=== PATIENT | female | born 1950 | race Caucasian/White ===

== ENCOUNTER 2018-06-22 11:53 | Outpatient (CLI) | payer MEDICARE ==
--- NOTE | 2018-06-22 13:48 | RAD ---
TWO VIEW CHEST: Indications: Pneumonia. Comparison: 09-06-17 FINDINGS: Heart size is mildly prominent. The vasculature is upper normal but stable. No focal infiltrate. No e ffusion. IMPRESSION: Borderline cardiomegaly and mild vascular engorgement. No acute process or interval change apparent. POS: [facility]
== END 2018-06-22 11:54 | disposition home or self-care (01) ==
LOC: MADRAD 11:53
PROVIDERS: ATTEND Obstetrics & Gynecology
DX: J18.1 Lobar pneumonia, unspecified organism (principal); I51.7 Cardiomegaly; J81.1 Chronic pulmonary edema
CPT/HCPCS: 71046

== ENCOUNTER 2019-08-29 14:37 | Inpatient (IN) | payer MEDICARE ==
[2019-08-29] MEDS ORDERED: Dextrose 50% Abboject 50 ML SYRINGE IVP PRN (21:08)
[2019-08-29] MEDS ORDERED: Dextrose 5% in Water 1,000 ML IV PRN (21:08)
[2019-08-29] MEDS ORDERED: Ondansetron ODT 4 MG TAB SL PRN (21:11)
[2019-08-29] MEDS ORDERED: Nitroglycerin 0.4 MG TAB (25 Tab Bottle) SL PRN (21:11)
[2019-08-29] MEDS ORDERED: SYSTANE 3.5 GM TUBE EA EYE PRN (21:11)
[2019-08-29] MEDS ORDERED: Calcium Carbonate 500 MG ChewTAB PO PRN (21:12)
[2019-08-29] MEDS: Apixaban 5 MG TAB PO SCH (21:40)
[2019-08-29] MEDS: Cefdinir 300 MG CAP PO SCH (21:40)
[2019-08-29] MEDS: Carvedilol 3.125 MG TAB PO SCH (21:40)
[2019-08-29] MEDS: Furosemide 40 MG TAB PO SCH (21:41)
[2019-08-29] MEDS: Lantus 1000 UNITS/10 ML VIAL SC SCH (21:41)
[2019-08-29] MEDS: Nystatin Ointment 15 GM TUBE TOP SCH (21:41)
[2019-08-30] MEDS: HYDROcodone/Acetaminophen 7.5/325 mg Tablet PO PRN ×3 (03:16→16:37)
[2019-08-30] MEDS: Levothyroxine Sodium 125 MCG TAB PO SCH (05:16)
[2019-08-30] MEDS: Aspirin Chewable 81 MG TAB PO SCH (08:30)
[2019-08-30] MEDS: Carvedilol 3.125 MG TAB PO SCH ×2 (08:31→20:32)
[2019-08-30] MEDS: Metolazone 5 MG TAB PO SCH (08:31)
[2019-08-30] MEDS: Furosemide 40 MG TAB PO SCH ×2 (08:31→20:33)
[2019-08-30] MEDS: Cefdinir 300 MG CAP PO SCH ×2 (08:32→20:32)
[2019-08-30] MEDS: Apixaban 5 MG TAB PO SCH ×2 (08:32→20:32)
[2019-08-30] MEDS: Citalopram 20 MG TAB PO SCH (08:32)
[2019-08-30] MEDS: Nystatin Ointment 15 GM TUBE TOP SCH (08:33)
[2019-08-30] MEDS ORDERED: FLU VACC TS2019-20(65YR UP)/PF 180 MCG/0.5 ML SYRINGE IM ONE (09:00)
[2019-08-30] MEDS ORDERED: Prevnar 13-Val Conj/PF 0.5 ML SYRINGE IM ONE (09:00)
[2019-08-30] MEDS: Insulin Regular 300 UNITS/3 ML VIAL SC PRN ×2 (12:05→16:40)
[2019-08-30 15:51] LABS: Bilirubin Negative (Negative); Blood, Urine Moderate (Negative); Clarity Clear (Clear); Glucose, Urine (Dipstick) Negative (Negative); Leukocyte Large (Negative); Nitrite Negative (Negative); Protein, Urine (Dipstick) Negative (Neg-Trace); Urobilinogen 0.2 mg/dL (Less than 2)
[2019-08-30 16:02] LABS: Bacteria/HPF 1+ HPF (None Seen); RBC/HPF 0-3 HPF (0-3)
[2019-08-30 16:03] LABS: Mucous/LPF Rare LPF (<2+)
--- NOTE | 2019-08-30 20:05 | HP ---
PRIMARY CARE PHYSICIAN: Dr. Rachel Mckinney. REASON FOR CONSULTATION: For skilled rehabilitation, status post acute on chronic diastolic heart failure, acute respiratory failure with hypoxia and hypercapnia. BRIEF HISTORY AND PHYSICAL: The patient is a 69-year-old female with a medical history of chronic diastolic heart failure, obstructing sleep apnea on CPAP, morbid obesity, type 2 diabetes, coronary artery disease, chronic low back pain, history of hypothyroidism, supraventricular tachycardia. The patient presented to [facility] in [place] on the 19 of August due to shortness of breath. The patient states she had worsening gradual shortness of breath for the past 3 months, became progressively worse in the last 3 to 4 days prior to the hospitalization. She states she was unable to lie flat. She was compliant with the CPAP at night, but she complained of some dry cough, nausea, and intermittent vomiting. En route to the hospital via EMS, the patient had bradycardic episodes with the heart rate in the 40s. She was given atropine, and when she was seen in the emergency room, she was noted to have acute hypoxic respiratory failure secondary to congestive heart failure. The patient was put on continuous noninvasive positive pressure ventilation, and she was admitted to the ICU. During hospitalization, she was seen by Dr. Mclaughlin, book critic and Dr. Haji, nutritional health coach. She was placed on dopamine drip for bradycardia, and she was gently diuresed. The patient was noted to have severe anasarca. Echocardiogram was done, which showed a normal ejection fraction with diastolic dysfunction. The patient had distended abdomen, severe abdominal wall edema and anasarca. She had abdominal ultrasound done, which showed mild ascites. The patient does have chronic kidney disease, so she was gently diuresed with IV Lasix. She slowly improved, but continued to have a lot of anasarca. The patient was noted to be severely deconditioned, and she was barely able to stand up and make 1 to 2 steps with maximum assist. The decision was made to admit and transfer the patient to a swing bed for skilled rehabilitation and to continue gently diureses and closely monitor renal function as she progresses. Due to diureses and severe morbid obesity and deconditioning, the patient had a Amezcua placed. Due to the acute respiratory failure and hypoxia. She was started on Omnicef for a total of 10 days. The patient was transferred here for skilled rehabilitation, and upon evaluation of the patient today, she continues to complain of lower back pain and abdominal pain. In [place], the patient was being given IV morphine. Medicine has been switched to [place] upon arrival here today, which the patient states it is helping a little. She is still very deconditioned. She is very fatigued. She denies any chest pain. She denies any palpitations or shortness of breath. The patient continues to use O2 nasal cannula at 2 L and a CPAP at night. PAST MEDICAL HISTORY: 1. Chronic diastolic heart failure. 2. Obstructive sleep apnea, on CPAP. 3. Diabetes, type 2. 4. CAD. 5. Dyslipidemia, hypertension, chronic lower back pain, GERD, morbid obesity, coronary artery disease, hypothyroidism. PAST SURGICAL HISTORY: Appendectomy in 2002, cholecystectomy, cardiac catheterization in 2013 that showed minimal single-vessel disease, tonsillectomy , tubal ligation, adenoidectomy. CODE STATUS: The patient is a full code. ALLERGIES: IODINE, SULFA, AND CHLORPROMAZINE. FAMILY HISTORY: Positive for heart disease in several family members. SOCIAL HISTORY: The patient is a former smoker. She denies alcohol or illicit drug use. She is . MEDICATIONS: 1. Eliquis 5 mg b.i.d. 2. Aspirin 81 mg daily. 3. Coreg 3.125 b.i.d. 4. Cefdinir 300 b.i.d. x4 more days. 5. Celexa 20 daily. 6. Cardizem 120 b.i.d. 7. Lasix 40 b.i.d. 8. Lantus 10 units at bedtime. 9. Levothyroxine 125 mcg daily. 10. Metolazone 5 mg daily. 11. Protonix 40 daily. REVIEW OF SYSTEMS: GENERAL: The patient complains of fatigue and lethargy. CARDIOVASCULAR: Denies chest pain. Complains of orthopnea. RESPIRATORY: Complains of shortness of breath. Occasional cough. ABDOMEN: The patient complains of abdominal pain. Denies any diarrhea or constipation. GENITOURINARY: The patient denies dysuria or hematuria. NEUROLOGICAL: THE patient denies any confusion. SKIN: The patient complains of some rashes and sores that she has had chronically. PHYSICAL EXAMINATION: VITAL SIGNS: Temperature 98.3, pulse 78, respirations 20, O2 97% on 2.5 nasal cannula. Blood pressure 121/75. GENERAL: The patient is alert, awake, and oriented x3. She is chronically ill-appearing and in moderate respiratory distress, but able to complete short phrases. HEENT: Normocephalic, atraumatic. Sclerae anicteric. Oral, moist mucous membranes. NECK: Supple. No JVD. LUNGS: Distant breath sounds. No wheezing. GASTROINTESTINAL: Distended, nontender. Positive bowel sounds. Abdominal wall edematous +2. EXTREMITIES: No cyanosis, +2 nonpitting bilateral edema. PSYCHIATRY: Normal affect. Alert, awake, and oriented x3. NEUROLOGICAL: Cranial nerves grossly intact. No focal deficits. ASSESSMENT: 1. Physical deconditioning. 2. Acute respiratory failure with hypoxia. 3. Acute kidney injury. 4. Acute on chronic diastolic heart failure. 5. Diabetes, type 2. 6. Morbid obesity. 7. Gait instability. 8. Hypothyroidism. 9. Obstructive sleep apnea, on CPAP. 10. Obesity-hypoventilation syndrome. PLAN: The patient is a 69-year-old female who has been admitted to [facility] for physical deconditioning and gait instability secondary to recent hospitalization with acute on chronic heart failure and respiratory failure. We will consult Physical Therapy and Occupational Therapy to help with gait and balance strengthening, ambulation and activities of daily living prior to discharge back to home. We will continue Lasix and gently diurese the patient. We will monitor renal function twice a week. We will encourage the patient to use the CPAP nightly. We will gently try to wean the patient off nasal cannula. We will complete oral Omnicef x4 days. We will resume home medications. We will place the patient on a strict I 's and O's and daily weight, 1000 fluid restriction, and a 2 g low-sodium diet. We will place the patient on Accu-Cheks a.c. and at bedtime. We will place patient on GI prophylaxis with Protonix. She is on Eliquis, which is sufficient for DVT prophylaxis. ESTIMATED LENGTH OF STAY: 3 to 4 weeks. DISPOSITION: Discharge back to home. Job ID: [id number] MTDD
[2019-08-30] MEDS: Nystatin Powder 15 GM BOT TOP SCH (20:35)
[2019-08-30] MEDS: Emollient 15 oz bottle 450 ML, Triamcinolone Acetonide 200 MG TOP SCH (20:36)
[2019-08-30] MEDS: Lantus 1000 UNITS/10 ML VIAL SC SCH (20:58)
[2019-08-31] MEDS: Ondansetron ODT 4 MG TAB PO PRN ×2 (00:53→12:24)
[2019-08-31 05:46] LABS: Anion Gap 16 mmol/L (10-20); BUN (Urea Nitrogen) 46 mg/dL (9.8-20.1); Calc. Creatinine Clearance 132 mL/min (70-130); Calcium 9.1 mg/dL (7.8-10.44); Carbon Dioxide 27 mmol/L (23-31); Chloride 99 mmol/L (98-107); Estimated GFR-MDRD 47; Glucose 149 mg/dL (80-115); Potassium 3.4 mmol/L (3.5-5.1); Sodium 139 mmol/L (136-145)
[2019-08-31 05:49] LABS: #Basophils 0.1 thou/uL (0.0-0.2); #Eosinphils 0.3 thou/uL (0.0-0.7); #Lymphocytes 1.8 thou/uL (1.20-3.40); #Neutrophils 6.4 thou/uL (1.40-6.50); %Basophils 1.3 % (0.0-1.0); %Eosinophils 2.8 % (0.0-10.0); %Monocytes 10.2 % (0.0-10.0); %Neutrophils 66.8 % (42.0-75.0); Hemoglobin 12.1 g/dL (12.0-16.0); Hypochromia SLIGHT = 6-15 cells (100X) (0-5/hpf); MDiff Complete? YES; Mean Corpuscular HGB CONC 29.9 g/dL (32.0-36.0); Mean Corpuscular Hemoglobin 27.8 pg (27.0-31.0); Mean Platelet Volume 7.2 fL (7.4-10.4); Platelet Count 214 thou/uL (130-400); RBC Distribution Width 15.9 % (11.5-14.5); Red Blood Cell (RBC) Count 4.34 mill/uL (4.20-5.40); Target Cells SLIGHT = 2-5 cells (100X) (0-1/hpf); White Blood Cell (WBC) Count 9.6 thou/uL (4.8-10.8)
[2019-08-31] MEDS: Levothyroxine Sodium 125 MCG TAB PO SCH (05:51)
[2019-08-31] MEDS: Cefdinir 300 MG CAP PO SCH ×2 (10:06→20:56)
[2019-08-31] MEDS: Aspirin Chewable 81 MG TAB PO SCH (10:07)
[2019-08-31] MEDS: Apixaban 5 MG TAB PO SCH ×2 (10:07→20:55)
[2019-08-31] MEDS: Metolazone 5 MG TAB PO SCH (10:07)
[2019-08-31] MEDS: Carvedilol 3.125 MG TAB PO SCH ×2 (10:07→20:55)
[2019-08-31] MEDS: Citalopram 20 MG TAB PO SCH (10:07)
[2019-08-31] MEDS: Furosemide 40 MG TAB PO SCH ×2 (10:07→20:56)
[2019-08-31] MEDS: Emollient 15 oz bottle 450 ML, Triamcinolone Acetonide 200 MG TOP SCH ×2 (10:09→21:13)
[2019-08-31] MEDS: HYDROcodone/Acetaminophen 7.5/325 mg Tablet PO PRN (12:22)
[2019-08-31] MEDS: Insulin Regular 300 UNITS/3 ML VIAL SC PRN (12:24)
[2019-08-31] MEDS: Nystatin Powder 15 GM BOT TOP SCH ×2 (12:27→21:13)
[2019-08-31] MEDS: Lantus 1000 UNITS/10 ML VIAL SC SCH (20:56)
[2019-09-01] MEDS: Levothyroxine Sodium 125 MCG TAB PO SCH (06:08)
[2019-09-01] MEDS: Furosemide 40 MG TAB PO SCH ×2 (08:30→20:51)
[2019-09-01] MEDS: Cefdinir 300 MG CAP PO SCH ×2 (08:30→20:50)
[2019-09-01] MEDS: Citalopram 20 MG TAB PO SCH (08:30)
[2019-09-01] MEDS: Apixaban 5 MG TAB PO SCH ×2 (08:30→20:51)
[2019-09-01] MEDS: Carvedilol 3.125 MG TAB PO SCH ×2 (08:30→20:50)
[2019-09-01] MEDS: Metolazone 5 MG TAB PO SCH (08:30)
[2019-09-01] MEDS: Aspirin Chewable 81 MG TAB PO SCH (08:30)
[2019-09-01] MEDS: Nystatin Powder 15 GM BOT TOP SCH (08:31)
[2019-09-01] MEDS: Emollient 15 oz bottle 450 ML, Triamcinolone Acetonide 200 MG TOP SCH ×2 (08:32→20:53)
[2019-09-01] MEDS: Insulin Regular 300 UNITS/3 ML VIAL SC PRN (12:13)
[2019-09-01] MEDS: Nystatin 500,000 UNITS/5 ML UDCUP SSW SCH ×2 (17:15→20:50)
[2019-09-01] MEDS: Lantus 1000 UNITS/10 ML VIAL SC SCH (22:47)
[2019-09-02] MEDS: Nystatin Powder 15 GM BOT TOP SCH ×3 (00:54→21:29)
[2019-09-02] MEDS: Levothyroxine Sodium 125 MCG TAB PO SCH (06:25)
[2019-09-02] MEDS: Aspirin Chewable 81 MG TAB PO SCH (09:09)
[2019-09-02] MEDS: Citalopram 20 MG TAB PO SCH (09:09)
[2019-09-02] MEDS: Nystatin 500,000 UNITS/5 ML UDCUP SSW SCH ×4 (09:09→21:33)
[2019-09-02] MEDS: Cefdinir 300 MG CAP PO SCH ×2 (09:09→21:26)
[2019-09-02] MEDS: Carvedilol 3.125 MG TAB PO SCH ×2 (09:10→21:26)
[2019-09-02] MEDS: Apixaban 5 MG TAB PO SCH ×2 (09:11→21:26)
[2019-09-02] MEDS: Furosemide 40 MG TAB PO SCH ×2 (09:11→21:26)
[2019-09-02] MEDS: Emollient 15 oz bottle 450 ML, Triamcinolone Acetonide 200 MG TOP SCH ×2 (09:11→21:30)
[2019-09-02] MEDS: Metolazone 5 MG TAB PO SCH (09:11)
[2019-09-02] MEDS: Insulin Regular 300 UNITS/3 ML VIAL SC PRN (09:12)
[2019-09-02] MEDS: Lantus 1000 UNITS/10 ML VIAL SC SCH (21:27)
[2019-09-03] MEDS: HYDROcodone/Acetaminophen 7.5/325 mg Tablet PO PRN (00:30)
[2019-09-03] MEDS: Levothyroxine Sodium 125 MCG TAB PO SCH (05:18)
[2019-09-03] MEDS: Apixaban 5 MG TAB PO SCH ×2 (08:33→20:15)
[2019-09-03] MEDS: Citalopram 20 MG TAB PO SCH (08:33)
[2019-09-03] MEDS: Metolazone 5 MG TAB PO SCH (08:33)
[2019-09-03] MEDS: Aspirin Chewable 81 MG TAB PO SCH (08:33)
[2019-09-03] MEDS: Carvedilol 3.125 MG TAB PO SCH ×2 (08:33→20:15)
[2019-09-03] MEDS: Furosemide 40 MG TAB PO SCH ×2 (08:33→20:16)
[2019-09-03] MEDS: Nystatin 500,000 UNITS/5 ML UDCUP SSW SCH ×4 (08:33→20:18)
[2019-09-03] MEDS: Emollient 15 oz bottle 450 ML, Triamcinolone Acetonide 200 MG TOP SCH ×2 (08:34→20:20)
[2019-09-03] MEDS: Nystatin Powder 15 GM BOT TOP SCH ×2 (08:34→20:17)
[2019-09-03] MEDS: Lantus 1000 UNITS/10 ML VIAL SC SCH (20:27)
[2019-09-04] MEDS: Levothyroxine Sodium 125 MCG TAB PO SCH (05:58)
[2019-09-04] MEDS: Carvedilol 3.125 MG TAB PO SCH ×2 (07:58→20:10)
[2019-09-04] MEDS: Apixaban 5 MG TAB PO SCH ×2 (07:58→20:10)
[2019-09-04] MEDS: Furosemide 40 MG TAB PO SCH ×2 (07:58→20:09)
[2019-09-04] MEDS: Aspirin Chewable 81 MG TAB PO SCH (07:58)
[2019-09-04] MEDS: Metolazone 5 MG TAB PO SCH (07:58)
[2019-09-04] MEDS: Citalopram 20 MG TAB PO SCH (07:58)
[2019-09-04] MEDS: Nystatin Powder 15 GM BOT TOP SCH ×2 (07:59→20:12)
[2019-09-04] MEDS: Nystatin 500,000 UNITS/5 ML UDCUP SSW SCH ×4 (08:00→20:10)
[2019-09-04] MEDS: Emollient 15 oz bottle 450 ML, Triamcinolone Acetonide 200 MG TOP SCH ×2 (08:00→20:15)
[2019-09-04] MEDS: Insulin Regular 300 UNITS/3 ML VIAL SC PRN ×2 (08:01→17:58)
[2019-09-04 10:49] LABS: ALT (SGPT) 9 U/L (8-55); AST (SGOT) 13 U/L (5-34); Albumin 3.6 g/dL (3.4-4.8); Alkaline Phosphatase 86 U/L (40-110); Anion Gap 19 mmol/L (10-20); BUN (Urea Nitrogen) 28 mg/dL (9.8-20.1); Bilirubin, Total 1.1 mg/dL (0.2-1.2); Calc. Creatinine Clearance 117 mL/min (70-130); Calcium 9.3 mg/dL (7.8-10.44); Carbon Dioxide 36 mmol/L (23-31); Chloride 90 mmol/L (98-107); Estimated GFR-MDRD 42; Globulin 3.7 g/dL (2.4-3.5); Glucose 115 mg/dL (80-115); Protein, Total 7.3 g/dL (6.0-8.3); Sodium 142 mmol/L (136-145)
[2019-09-04 11:04] LABS: #Basophils 0.1 thou/uL (0.0-0.2); #Eosinphils 0.2 thou/uL (0.0-0.7); #Lymphocytes 2.1 thou/uL (1.20-3.40); #Monocytes 0.7 thou/uL (0.11-0.59); #Neutrophils 5.7 thou/uL (1.40-6.50); %Basophils 1.2 % (0.0-1.0); %Eosinophils 2.5 % (0.0-10.0); %Lymphocytes 23.9 % (21.0-51.0); %Monocytes 8.2 % (0.0-10.0); %Neutrophils 64.2 % (42.0-75.0); Hemoglobin 12.8 g/dL (12.0-16.0); Mean Corpuscular HGB CONC 30.4 g/dL (32.0-36.0); Mean Corpuscular Hemoglobin 27.8 pg (27.0-31.0); Mean Corpuscular Volume 91.7 fL (78.0-98.0); Mean Platelet Volume 7.3 fL (7.4-10.4); Platelet Count 191 thou/uL (130-400); RBC Distribution Width 15.3 % (11.5-14.5); Red Blood Cell (RBC) Count 4.61 mill/uL (4.20-5.40); White Blood Cell (WBC) Count 8.9 thou/uL (4.8-10.8)
[2019-09-04] MEDS: Lantus 1000 UNITS/10 ML VIAL SC SCH (20:52)
[2019-09-05] MEDS: Levothyroxine Sodium 125 MCG TAB PO SCH (05:42)
[2019-09-05 07:26] LABS: Hemoglobin 11.8 g/dL (12.0-16.0); Platelet Count 198 thou/uL (130-400)
[2019-09-05] MEDS: Aspirin Chewable 81 MG TAB PO SCH (08:31)
[2019-09-05] MEDS: Metolazone 5 MG TAB PO SCH (08:31)
[2019-09-05] MEDS: Carvedilol 3.125 MG TAB PO SCH ×2 (08:31→21:45)
[2019-09-05] MEDS: Apixaban 5 MG TAB PO SCH ×2 (08:31→21:45)
[2019-09-05] MEDS: Citalopram 20 MG TAB PO SCH (08:31)
[2019-09-05] MEDS: Furosemide 40 MG TAB PO SCH ×2 (08:31→21:45)
[2019-09-05] MEDS: Nystatin 500,000 UNITS/5 ML UDCUP SSW SCH ×4 (08:32→21:46)
[2019-09-05] MEDS: Fluticasone Propionate Nasal Spray 16 gm Bottle NASAL SCH (08:32)
[2019-09-05] MEDS: Nystatin Powder 15 GM BOT TOP SCH ×2 (08:35→22:18)
[2019-09-05] MEDS: Emollient 15 oz bottle 450 ML, Triamcinolone Acetonide 200 MG TOP SCH ×2 (08:35→22:18)
[2019-09-05] MEDS: Insulin Regular 300 UNITS/3 ML VIAL SC PRN (12:08)
[2019-09-05] MEDS: Lantus 1000 UNITS/10 ML VIAL SC SCH (21:46)
[2019-09-05] MEDS: Melatonin 3 MG TAB PO PRN (22:17)
[2019-09-06] MEDS: Levothyroxine Sodium 125 MCG TAB PO SCH (05:13)
[2019-09-06] MEDS: Fluticasone Propionate Nasal Spray 16 gm Bottle NASAL SCH (08:20)
[2019-09-06] MEDS: Aspirin Chewable 81 MG TAB PO SCH (08:21)
[2019-09-06] MEDS: Metolazone 5 MG TAB PO SCH (08:21)
[2019-09-06] MEDS: Nystatin 500,000 UNITS/5 ML UDCUP SSW SCH ×4 (08:21→21:27)
[2019-09-06] MEDS: Furosemide 40 MG TAB PO SCH ×2 (08:21→21:26)
[2019-09-06] MEDS: Carvedilol 3.125 MG TAB PO SCH ×2 (08:21→21:26)
[2019-09-06] MEDS: Apixaban 5 MG TAB PO SCH ×2 (08:21→21:26)
[2019-09-06] MEDS: Citalopram 20 MG TAB PO SCH (08:21)
[2019-09-06] MEDS: Emollient 15 oz bottle 450 ML, Triamcinolone Acetonide 200 MG TOP SCH ×2 (08:22→21:29)
[2019-09-06] MEDS: Nystatin Powder 15 GM BOT TOP SCH ×2 (08:22→21:28)
[2019-09-06] MEDS: Insulin Regular 300 UNITS/3 ML VIAL SC PRN (17:08)
[2019-09-06] MEDS: Lantus 1000 UNITS/10 ML VIAL SC SCH (21:26)
[2019-09-06] MEDS: Melatonin 3 MG TAB PO PRN (21:27)
[2019-09-07] MEDS: Levothyroxine Sodium 125 MCG TAB PO SCH (06:20)
[2019-09-07] MEDS: Fluticasone Propionate Nasal Spray 16 gm Bottle NASAL SCH (10:27)
[2019-09-07] MEDS: Aspirin Chewable 81 MG TAB PO SCH (10:28)
[2019-09-07] MEDS: Metolazone 5 MG TAB PO SCH (10:28)
[2019-09-07] MEDS: Citalopram 20 MG TAB PO SCH (10:28)
[2019-09-07] MEDS: Furosemide 40 MG TAB PO SCH ×2 (10:29→20:19)
[2019-09-07] MEDS: Carvedilol 3.125 MG TAB PO SCH ×2 (10:29→20:19)
[2019-09-07] MEDS: Nystatin Powder 15 GM BOT TOP SCH ×2 (10:29→20:23)
[2019-09-07] MEDS: Apixaban 5 MG TAB PO SCH ×2 (10:29→20:19)
[2019-09-07] MEDS: Nystatin 500,000 UNITS/5 ML UDCUP SSW SCH ×4 (10:29→21:03)
[2019-09-07] MEDS: Emollient 15 oz bottle 450 ML, Triamcinolone Acetonide 200 MG TOP SCH ×2 (10:30→20:24)
[2019-09-07 11:09] LABS: Anion Gap 23 mmol/L (10-20); BUN (Urea Nitrogen) 21 mg/dL (9.8-20.1); Calc. Creatinine Clearance 109 mL/min (70-130); Calcium 9.2 mg/dL (7.8-10.44); Carbon Dioxide 34 mmol/L (23-31); Chloride 84 mmol/L (98-107); Estimated GFR-MDRD 42; Glucose 124 mg/dL (80-115); Sodium 138 mmol/L (136-145)
[2019-09-07 11:19] LABS: Potassium 2.9 mmol/L (3.5-5.1)
[2019-09-07] MEDS: Insulin Regular 300 UNITS/3 ML VIAL SC PRN (13:18)
[2019-09-07] MEDS ORDERED: Potassium Chloride 20 MEQ TAB PO SCH (15:00)
[2019-09-07] MEDS: Lantus 1000 UNITS/10 ML VIAL SC SCH (21:03)
[2019-09-08] MEDS: Levothyroxine Sodium 125 MCG TAB PO SCH (05:24)
[2019-09-08] MEDS: Metolazone 5 MG TAB PO SCH (08:25)
[2019-09-08] MEDS: Citalopram 20 MG TAB PO SCH (08:25)
[2019-09-08] MEDS: Furosemide 40 MG TAB PO SCH ×2 (08:25→20:52)
[2019-09-08] MEDS: Carvedilol 3.125 MG TAB PO SCH ×2 (08:25→20:51)
[2019-09-08] MEDS: Nystatin 500,000 UNITS/5 ML UDCUP SSW SCH ×4 (08:25→20:51)
[2019-09-08] MEDS: Potassium Chloride 20 MEQ TAB PO SCH (08:25)
[2019-09-08] MEDS: Aspirin Chewable 81 MG TAB PO SCH (08:25)
[2019-09-08] MEDS: Fluticasone Propionate Nasal Spray 16 gm Bottle NASAL SCH (08:26)
[2019-09-08] MEDS: Apixaban 5 MG TAB PO SCH ×2 (08:27→20:51)
[2019-09-08] MEDS: Nystatin Powder 15 GM BOT TOP SCH ×2 (08:27→20:53)
[2019-09-08] MEDS: Emollient 15 oz bottle 450 ML, Triamcinolone Acetonide 200 MG TOP SCH ×2 (08:28→20:53)
[2019-09-08] MEDS: Insulin Regular 300 UNITS/3 ML VIAL SC PRN ×2 (11:55→17:03)
[2019-09-08] MEDS: Lantus 1000 UNITS/10 ML VIAL SC SCH (20:52)
[2019-09-08] MEDS: Melatonin 3 MG TAB PO PRN (20:54)
[2019-09-09] MEDS: Levothyroxine Sodium 125 MCG TAB PO SCH (05:25)
[2019-09-09 05:57] LABS: Anion Gap 21 mmol/L (10-20); BUN (Urea Nitrogen) 24 mg/dL (9.8-20.1); Calc. Creatinine Clearance 91 mL/min (70-130); Carbon Dioxide 38 mmol/L (23-31); Estimated GFR-MDRD 34
[2019-09-09 05:58] LABS: Glucose 160 mg/dL (80-115)
[2019-09-09 06:05] LABS: Chloride 81 mmol/L (98-107); Sodium 138 mmol/L (136-145)
[2019-09-09 06:18] LABS: Potassium 2.8 mmol/L (3.5-5.1)
[2019-09-09] MEDS ORDERED: Potassium Chloride 20 MEQ TAB PO SCH ×2 (07:30→17:00)
[2019-09-09] MEDS: Aspirin Chewable 81 MG TAB PO SCH (07:59)
[2019-09-09] MEDS: Metolazone 5 MG TAB PO SCH (08:02)
[2019-09-09] MEDS: Potassium Chloride 20 MEQ TAB PO SCH (08:02)
[2019-09-09] MEDS: Nystatin 500,000 UNITS/5 ML UDCUP SSW SCH ×4 (08:02→21:47)
[2019-09-09] MEDS: Carvedilol 3.125 MG TAB PO SCH ×2 (08:03→21:47)
[2019-09-09] MEDS: Fluticasone Propionate Nasal Spray 16 gm Bottle NASAL SCH (08:03)
[2019-09-09] MEDS: Citalopram 20 MG TAB PO SCH (08:03)
[2019-09-09] MEDS: Furosemide 40 MG TAB PO SCH ×2 (08:03→21:47)
[2019-09-09] MEDS: Apixaban 5 MG TAB PO SCH ×2 (08:03→21:47)
[2019-09-09] MEDS: Emollient 15 oz bottle 450 ML, Triamcinolone Acetonide 200 MG TOP SCH ×2 (08:04→21:48)
[2019-09-09] MEDS: Nystatin Powder 15 GM BOT TOP SCH ×2 (08:04→21:48)
[2019-09-09] MEDS: Insulin Regular 300 UNITS/3 ML VIAL SC PRN ×3 (08:23→17:22)
[2019-09-09 16:11] LABS: Potassium 4.1 mmol/L (3.5-5.1)
[2019-09-09] MEDS: Melatonin 3 MG TAB PO PRN (21:47)
[2019-09-09] MEDS: Lantus 1000 UNITS/10 ML VIAL SC SCH (21:48)
[2019-09-10] MEDS: Levothyroxine Sodium 125 MCG TAB PO SCH (05:37)
[2019-09-10 05:54] LABS: Anion Gap 23 mmol/L (10-20); BUN (Urea Nitrogen) 27 mg/dL (9.8-20.1); Calc. Creatinine Clearance 94 mL/min (70-130); Calcium 9.1 mg/dL (7.8-10.44); Carbon Dioxide 37 mmol/L (23-31); Estimated GFR-MDRD 36; Glucose 146 mg/dL (80-115)
[2019-09-10 06:01] LABS: Chloride 82 mmol/L (98-107); Sodium 139 mmol/L (136-145)
[2019-09-10 06:04] LABS: Potassium 2.7 mmol/L (3.5-5.1)
[2019-09-10] MEDS ORDERED: Potassium Chloride 20 MEQ TAB PO SCH (08:00)
[2019-09-10] MEDS: Metolazone 5 MG TAB PO SCH (08:39)
[2019-09-10] MEDS: Furosemide 40 MG TAB PO SCH (08:39)
[2019-09-10] MEDS: Acetaminophen 325 MG TAB PO PRN (08:40)
[2019-09-10] MEDS: Apixaban 5 MG TAB PO SCH ×2 (08:40→22:10)
[2019-09-10] MEDS: Citalopram 20 MG TAB PO SCH (08:40)
[2019-09-10] MEDS: Nystatin 500,000 UNITS/5 ML UDCUP SSW SCH ×4 (08:40→22:11)
[2019-09-10] MEDS: Aspirin Chewable 81 MG TAB PO SCH (08:40)
[2019-09-10] MEDS: Fluticasone Propionate Nasal Spray 16 gm Bottle NASAL SCH (08:40)
[2019-09-10] MEDS: Carvedilol 3.125 MG TAB PO SCH ×2 (08:40→22:10)
[2019-09-10] MEDS: Nystatin Powder 15 GM BOT TOP SCH ×2 (08:41→22:12)
[2019-09-10] MEDS: Emollient 15 oz bottle 450 ML, Triamcinolone Acetonide 200 MG TOP SCH ×2 (08:41→22:20)
[2019-09-10] MEDS: Potassium Chloride 20 MEQ TAB PO SCH (10:31)
[2019-09-10] MEDS: Insulin Regular 300 UNITS/3 ML VIAL SC PRN ×3 (12:08→22:17)
[2019-09-10] MEDS: Lantus 1000 UNITS/10 ML VIAL SC SCH (22:10)
[2019-09-10] MEDS: Melatonin 3 MG TAB PO PRN (22:10)
[2019-09-11] MEDS: Levothyroxine Sodium 125 MCG TAB PO SCH (05:35)
[2019-09-11 06:03] LABS: Anion Gap 22 mmol/L (10-20); BUN (Urea Nitrogen) 25 mg/dL (9.8-20.1); Calc. Creatinine Clearance 92 mL/min (70-130); Carbon Dioxide 35 mmol/L (23-31); Estimated GFR-MDRD 36; Glucose 169 mg/dL (80-115)
[2019-09-11 06:11] LABS: Chloride 83 mmol/L (98-107); Sodium 137 mmol/L (136-145)
[2019-09-11] MEDS: Fluticasone Propionate Nasal Spray 16 gm Bottle NASAL SCH (08:38)
[2019-09-11] MEDS: Nystatin Powder 15 GM BOT TOP SCH ×2 (08:39→21:40)
[2019-09-11] MEDS: Nystatin 500,000 UNITS/5 ML UDCUP SSW SCH ×4 (08:39→21:40)
[2019-09-11] MEDS: Aspirin Chewable 81 MG TAB PO SCH (08:40)
[2019-09-11] MEDS: Carvedilol 3.125 MG TAB PO SCH ×2 (08:40→21:37)
[2019-09-11] MEDS: Apixaban 5 MG TAB PO SCH ×2 (08:40→21:37)
[2019-09-11] MEDS: Metolazone 5 MG TAB PO SCH (08:40)
[2019-09-11] MEDS: Citalopram 20 MG TAB PO SCH (08:40)
[2019-09-11] MEDS: Potassium Chloride 20 MEQ TAB PO SCH (08:40)
[2019-09-11] MEDS: Furosemide 20 MG TAB PO SCH ×2 (08:41→13:28)
[2019-09-11] MEDS: Emollient 15 oz bottle 450 ML, Triamcinolone Acetonide 200 MG TOP SCH ×2 (08:41→21:40)
[2019-09-11] MEDS: Insulin Regular 300 UNITS/3 ML VIAL SC PRN ×4 (08:43→21:42)
[2019-09-11 11:25] LABS: Hemoglobin A1c 6.7 % (4.0-6.0)
[2019-09-11] MEDS: HYDROcodone/Acetaminophen 7.5/325 mg Tablet PO PRN (12:17)
[2019-09-11] MEDS ORDERED: Senokot S 8.6-50 MG TAB PO PRN (12:36)
[2019-09-11] MEDS ORDERED: Bisacodyl 5 MG TAB PO PRN (12:36)
[2019-09-11] MEDS ORDERED: Polyethylene Glycol 3350 17 GM Packet PO SCH ×2 (12:45→13:00)
[2019-09-11] MEDS: Melatonin 3 MG TAB PO PRN (21:37)
[2019-09-11] MEDS: Lantus 1000 UNITS/10 ML VIAL SC SCH (21:41)
[2019-09-12 05:45] LABS: Hemoglobin 11.4 g/dL (12.0-16.0); Platelet Count 205 thou/uL (130-400)
[2019-09-12] MEDS: Levothyroxine Sodium 125 MCG TAB PO SCH (05:50)
[2019-09-12] MEDS: HYDROcodone/Acetaminophen 7.5/325 mg Tablet PO PRN ×3 (07:54→21:32)
[2019-09-12] MEDS: Citalopram 20 MG TAB PO SCH (08:35)
[2019-09-12] MEDS: Potassium Chloride 20 MEQ TAB PO SCH (08:35)
[2019-09-12] MEDS: Carvedilol 3.125 MG TAB PO SCH ×2 (08:35→21:24)
[2019-09-12] MEDS: Metolazone 5 MG TAB PO SCH (08:36)
[2019-09-12] MEDS: Aspirin Chewable 81 MG TAB PO SCH (08:36)
[2019-09-12] MEDS: Nystatin 500,000 UNITS/5 ML UDCUP SSW SCH ×4 (08:36→21:24)
[2019-09-12] MEDS: Nystatin Powder 15 GM BOT TOP SCH ×2 (08:36→21:37)
[2019-09-12] MEDS: Fluticasone Propionate Nasal Spray 16 gm Bottle NASAL SCH (08:36)
[2019-09-12] MEDS: Furosemide 20 MG TAB PO SCH ×2 (08:36→14:12)
[2019-09-12] MEDS: Apixaban 5 MG TAB PO SCH ×2 (08:36→21:24)
[2019-09-12] MEDS: Emollient 15 oz bottle 450 ML, Triamcinolone Acetonide 200 MG TOP SCH ×2 (08:37→21:36)
[2019-09-12] MEDS: Insulin Regular 300 UNITS/3 ML VIAL SC PRN ×4 (08:39→21:26)
[2019-09-12] MEDS ORDERED: Polyethylene Glycol 3350 17 GM Packet PO SCH (09:00)
[2019-09-12] MEDS ORDERED: Docusate 100 MG CAP PO SCH (09:45)
[2019-09-12] MEDS: Milk Of Magnesia 30 ML UDCUP PO PRN (09:46)
[2019-09-12] MEDS: Docusate 100 MG CAP PO SCH ×2 (09:46→21:24)
[2019-09-12] MEDS: Lantus 1000 UNITS/10 ML VIAL SC SCH (21:25)
[2019-09-13] MEDS: HYDROcodone/Acetaminophen 7.5/325 mg Tablet PO PRN ×3 (01:47→17:38)
[2019-09-13] MEDS: Levothyroxine Sodium 125 MCG TAB PO SCH (05:49)
[2019-09-13] MEDS: Acetaminophen 325 MG TAB PO PRN (05:56)
[2019-09-13] MEDS: Carvedilol 3.125 MG TAB PO SCH ×2 (07:56→20:31)
[2019-09-13] MEDS: Furosemide 20 MG TAB PO SCH ×2 (07:56→13:24)
[2019-09-13] MEDS: Citalopram 20 MG TAB PO SCH (07:56)
[2019-09-13] MEDS: Aspirin Chewable 81 MG TAB PO SCH (07:56)
[2019-09-13] MEDS: Potassium Chloride 20 MEQ TAB PO SCH (07:56)
[2019-09-13] MEDS: Metolazone 5 MG TAB PO SCH (07:56)
[2019-09-13] MEDS: Docusate 100 MG CAP PO SCH ×2 (07:56→20:31)
[2019-09-13] MEDS: Apixaban 5 MG TAB PO SCH ×2 (07:56→20:32)
[2019-09-13] MEDS: Fluticasone Propionate Nasal Spray 16 gm Bottle NASAL SCH (07:57)
[2019-09-13] MEDS: Nystatin Powder 15 GM BOT TOP SCH ×2 (07:58→20:35)
[2019-09-13] MEDS: Nystatin 500,000 UNITS/5 ML UDCUP SSW SCH ×4 (07:58→20:31)
[2019-09-13] MEDS: Insulin Regular 300 UNITS/3 ML VIAL SC PRN ×3 (07:59→17:10)
[2019-09-13] MEDS: Emollient 15 oz bottle 450 ML, Triamcinolone Acetonide 200 MG TOP SCH ×2 (07:59→20:35)
[2019-09-13] MEDS: Milk Of Magnesia 30 ML UDCUP PO PRN (19:42)
[2019-09-13] MEDS: Lantus 1000 UNITS/10 ML VIAL SC SCH (21:10)
[2019-09-14] MEDS: HYDROcodone/Acetaminophen 7.5/325 mg Tablet PO PRN ×2 (00:26→19:47)
[2019-09-14] MEDS: Levothyroxine Sodium 125 MCG TAB PO SCH (05:13)
[2019-09-14 05:43] LABS: #Basophils 0.1 thou/uL (0.0-0.2); #Eosinphils 0.2 thou/uL (0.0-0.7); #Lymphocytes 2.3 thou/uL (1.20-3.40); #Monocytes 0.7 thou/uL (0.11-0.59); #Neutrophils 5.3 thou/uL (1.40-6.50); %Basophils 1.3 % (0.0-1.0); %Eosinophils 2.6 % (0.0-10.0); %Lymphocytes 26.3 % (21.0-51.0); %Monocytes 8.4 % (0.0-10.0); %Neutrophils 61.5 % (42.0-75.0); Hemoglobin 10.9 g/dL (12.0-16.0); Mean Corpuscular HGB CONC 29.7 g/dL (32.0-36.0); Mean Corpuscular Hemoglobin 27.8 pg (27.0-31.0); Mean Corpuscular Volume 93.5 fL (78.0-98.0); Mean Platelet Volume 8.4 fL (7.4-10.4); Platelet Count 232 thou/uL (130-400); RBC Distribution Width 16.4 % (11.5-14.5); Red Blood Cell (RBC) Count 3.91 mill/uL (4.20-5.40); White Blood Cell (WBC) Count 8.6 thou/uL (4.8-10.8)
[2019-09-14 05:52] LABS: Anion Gap 20 mmol/L (10-20); BUN (Urea Nitrogen) 32 mg/dL (9.8-20.1); Calc. Creatinine Clearance 80 mL/min (70-130); Calcium 9.4 mg/dL (7.8-10.44); Carbon Dioxide 35 mmol/L (23-31); Estimated GFR-MDRD 31; Glucose 170 mg/dL (80-115)
[2019-09-14 06:00] LABS: Chloride 85 mmol/L (98-107); Potassium 3.3 mmol/L (3.5-5.1); Sodium 136 mmol/L (136-145)
[2019-09-14] MEDS: Docusate 100 MG CAP PO SCH ×2 (08:30→20:39)
[2019-09-14] MEDS: Citalopram 20 MG TAB PO SCH (08:30)
[2019-09-14] MEDS: Apixaban 5 MG TAB PO SCH ×2 (08:30→20:39)
[2019-09-14] MEDS: Furosemide 20 MG TAB PO SCH ×3 (08:30→15:15)
[2019-09-14] MEDS: Potassium Chloride 20 MEQ TAB PO SCH (08:30)
[2019-09-14] MEDS: Aspirin Chewable 81 MG TAB PO SCH (08:31)
[2019-09-14] MEDS: Carvedilol 3.125 MG TAB PO SCH ×2 (08:31→20:39)
[2019-09-14] MEDS: Nystatin 500,000 UNITS/5 ML UDCUP SSW SCH ×5 (08:31→20:43)
[2019-09-14] MEDS: Metolazone 5 MG TAB PO SCH (08:31)
[2019-09-14] MEDS: Fluticasone Propionate Nasal Spray 16 gm Bottle NASAL SCH (08:31)
[2019-09-14] MEDS: Emollient 15 oz bottle 450 ML, Triamcinolone Acetonide 200 MG TOP SCH ×2 (08:32→20:43)
[2019-09-14] MEDS: Nystatin Powder 15 GM BOT TOP SCH ×2 (08:32→20:43)
[2019-09-14] MEDS: Insulin Regular 300 UNITS/3 ML VIAL SC PRN ×4 (08:33→20:50)
[2019-09-14] MEDS: Lantus 1000 UNITS/10 ML VIAL SC SCH (20:41)
[2019-09-15] MEDS: Levothyroxine Sodium 125 MCG TAB PO SCH (05:51)
[2019-09-15] MEDS: Metolazone 5 MG TAB PO SCH (08:31)
[2019-09-15] MEDS: Potassium Chloride 20 MEQ TAB PO SCH (08:31)
[2019-09-15] MEDS: Aspirin Chewable 81 MG TAB PO SCH (08:32)
[2019-09-15] MEDS: Apixaban 5 MG TAB PO SCH ×2 (08:32→21:18)
[2019-09-15] MEDS: Carvedilol 3.125 MG TAB PO SCH ×2 (08:33→21:18)
[2019-09-15] MEDS: Docusate 100 MG CAP PO SCH ×2 (08:33→21:18)
[2019-09-15] MEDS: Citalopram 20 MG TAB PO SCH (08:33)
[2019-09-15] MEDS: Fluticasone Propionate Nasal Spray 16 gm Bottle NASAL SCH (08:33)
[2019-09-15] MEDS: Furosemide 20 MG TAB PO SCH ×2 (08:33→14:43)
[2019-09-15] MEDS: Nystatin 500,000 UNITS/5 ML UDCUP SSW SCH ×4 (08:34→21:19)
[2019-09-15] MEDS: Nystatin Powder 15 GM BOT TOP SCH ×2 (08:36→21:19)
[2019-09-15] MEDS: Emollient 15 oz bottle 450 ML, Triamcinolone Acetonide 200 MG TOP SCH ×2 (08:37→21:20)
[2019-09-15] MEDS: Insulin Regular 300 UNITS/3 ML VIAL SC PRN ×3 (12:42→21:20)
[2019-09-15] MEDS: Lantus 1000 UNITS/10 ML VIAL SC SCH (21:18)
[2019-09-16] MEDS: Levothyroxine Sodium 125 MCG TAB PO SCH (05:49)
[2019-09-16] MEDS: Fluticasone Propionate Nasal Spray 16 gm Bottle NASAL SCH (08:50)
[2019-09-16] MEDS: Potassium Chloride 20 MEQ TAB PO SCH (08:51)
[2019-09-16] MEDS: Aspirin Chewable 81 MG TAB PO SCH (08:51)
[2019-09-16] MEDS: Carvedilol 3.125 MG TAB PO SCH ×2 (08:51→22:00)
[2019-09-16] MEDS: Metolazone 5 MG TAB PO SCH (08:51)
[2019-09-16] MEDS: Apixaban 5 MG TAB PO SCH ×2 (08:51→22:00)
[2019-09-16] MEDS: Furosemide 20 MG TAB PO SCH ×2 (08:52→14:24)
[2019-09-16] MEDS: Citalopram 20 MG TAB PO SCH (08:52)
[2019-09-16] MEDS: Nystatin 500,000 UNITS/5 ML UDCUP SSW SCH ×4 (08:52→21:39)
[2019-09-16] MEDS: Docusate 100 MG CAP PO SCH ×2 (08:53→22:00)
[2019-09-16] MEDS: Insulin Regular 300 UNITS/3 ML VIAL SC PRN ×4 (08:54→22:04)
[2019-09-16] MEDS: Milk Of Magnesia 30 ML UDCUP PO PRN (08:58)
[2019-09-16] MEDS: Nystatin Powder 15 GM BOT TOP SCH ×2 (08:58→21:40)
[2019-09-16] MEDS: Emollient 15 oz bottle 450 ML, Triamcinolone Acetonide 200 MG TOP SCH ×2 (09:00→21:40)
[2019-09-16] MEDS: HYDROcodone/Acetaminophen 7.5/325 mg Tablet PO PRN (22:00)
[2019-09-16] MEDS: Melatonin 3 MG TAB PO PRN (22:00)
[2019-09-16] MEDS: Lantus 1000 UNITS/10 ML VIAL SC SCH (22:02)
[2019-09-17] MEDS: Levothyroxine Sodium 125 MCG TAB PO SCH (05:29)
[2019-09-17] MEDS: Aspirin Chewable 81 MG TAB PO SCH (08:30)
[2019-09-17] MEDS: Fluticasone Propionate Nasal Spray 16 gm Bottle NASAL SCH (08:30)
[2019-09-17] MEDS: Furosemide 20 MG TAB PO SCH ×2 (08:30→13:59)
[2019-09-17] MEDS: Metolazone 5 MG TAB PO SCH (08:30)
[2019-09-17] MEDS: Nystatin 500,000 UNITS/5 ML UDCUP SSW SCH ×4 (08:30→21:19)
[2019-09-17] MEDS: Carvedilol 3.125 MG TAB PO SCH ×2 (08:30→21:18)
[2019-09-17] MEDS: Docusate 100 MG CAP PO SCH ×2 (08:30→21:18)
[2019-09-17] MEDS: Citalopram 20 MG TAB PO SCH (08:30)
[2019-09-17] MEDS: Apixaban 5 MG TAB PO SCH ×2 (08:30→21:18)
[2019-09-17] MEDS: Potassium Chloride 20 MEQ TAB PO SCH (08:30)
[2019-09-17] MEDS: Emollient 15 oz bottle 450 ML, Triamcinolone Acetonide 200 MG TOP SCH ×2 (08:31→21:19)
[2019-09-17] MEDS: Nystatin Powder 15 GM BOT TOP SCH ×2 (08:31→21:17)
[2019-09-17] MEDS: Insulin Regular 300 UNITS/3 ML VIAL SC PRN ×3 (08:37→17:04)
[2019-09-17] MEDS: Lantus 1000 UNITS/10 ML VIAL SC SCH (21:15)
[2019-09-17] MEDS: HYDROcodone/Acetaminophen 7.5/325 mg Tablet PO PRN (21:16)
[2019-09-17] MEDS: Melatonin 3 MG TAB PO PRN (21:17)
[2019-09-18] MEDS: Levothyroxine Sodium 125 MCG TAB PO SCH (05:25)
[2019-09-18 07:01] LABS: #Basophils 0.1 thou/uL (0.0-0.2); #Eosinphils 0.2 thou/uL (0.0-0.7); #Lymphocytes 2.2 thou/uL (1.20-3.40); #Monocytes 0.7 thou/uL (0.11-0.59); #Neutrophils 5.8 thou/uL (1.40-6.50); %Basophils 1.2 % (0.0-1.0); %Eosinophils 2.2 % (0.0-10.0); %Lymphocytes 24.1 % (21.0-51.0); %Monocytes 8.2 % (0.0-10.0); %Neutrophils 64.3 % (42.0-75.0); Hemoglobin 10.6 g/dL (12.0-16.0); Mean Corpuscular HGB CONC 29.9 g/dL (32.0-36.0); Mean Corpuscular Hemoglobin 28.1 pg (27.0-31.0); Mean Corpuscular Volume 93.9 fL (78.0-98.0); Mean Platelet Volume 7.3 fL (7.4-10.4); Platelet Count 223 thou/uL (130-400); RBC Distribution Width 16.1 % (11.5-14.5); Red Blood Cell (RBC) Count 3.77 mill/uL (4.20-5.40)
[2019-09-18 07:11] LABS: Anion Gap 17 mmol/L (10-20); BUN (Urea Nitrogen) 27 mg/dL (9.8-20.1); Calc. Creatinine Clearance 91 mL/min (70-130); Calcium 9.6 mg/dL (7.8-10.44); Carbon Dioxide 32 mmol/L (23-31); Chloride 91 mmol/L (98-107); Estimated GFR-MDRD 36; Glucose 194 mg/dL (80-115); Potassium 3.4 mmol/L (3.5-5.1); Sodium 137 mmol/L (136-145)
[2019-09-18] MEDS: Potassium Chloride 20 MEQ TAB PO SCH (08:12)
[2019-09-18] MEDS: Nystatin 500,000 UNITS/5 ML UDCUP SSW SCH ×4 (08:12→20:50)
[2019-09-18] MEDS: Citalopram 20 MG TAB PO SCH (08:13)
[2019-09-18] MEDS: Metolazone 5 MG TAB PO SCH (08:13)
[2019-09-18] MEDS: Docusate 100 MG CAP PO SCH ×2 (08:13→20:51)
[2019-09-18] MEDS: Carvedilol 3.125 MG TAB PO SCH ×2 (08:13→20:52)
[2019-09-18] MEDS: Aspirin Chewable 81 MG TAB PO SCH (08:13)
[2019-09-18] MEDS: Apixaban 5 MG TAB PO SCH ×2 (08:13→20:51)
[2019-09-18] MEDS: Furosemide 20 MG TAB PO SCH ×2 (08:14→14:40)
[2019-09-18] MEDS: Fluticasone Propionate Nasal Spray 16 gm Bottle NASAL SCH (08:14)
[2019-09-18] MEDS: Nystatin Powder 15 GM BOT TOP SCH ×2 (08:15→20:50)
[2019-09-18] MEDS: Emollient 15 oz bottle 450 ML, Triamcinolone Acetonide 200 MG TOP SCH ×2 (08:15→20:51)
[2019-09-18] MEDS: Insulin Regular 300 UNITS/3 ML VIAL SC PRN ×3 (08:23→17:07)
[2019-09-18] MEDS: Melatonin 3 MG TAB PO PRN (20:49)
[2019-09-18] MEDS: HYDROcodone/Acetaminophen 7.5/325 mg Tablet PO PRN (20:49)
[2019-09-18] MEDS: Lantus 1000 UNITS/10 ML VIAL SC SCH (20:58)
[2019-09-19] MEDS: Levothyroxine Sodium 125 MCG TAB PO SCH (05:37)
[2019-09-19 08:04] LABS: Platelet Count 230 thou/uL (130-400)
[2019-09-19] MEDS: Fluticasone Propionate Nasal Spray 16 gm Bottle NASAL SCH (08:05)
[2019-09-19] MEDS: Metolazone 5 MG TAB PO SCH (08:05)
[2019-09-19] MEDS: Furosemide 20 MG TAB PO SCH ×2 (08:05→14:14)
[2019-09-19] MEDS: Docusate 100 MG CAP PO SCH ×2 (08:05→20:59)
[2019-09-19] MEDS: Apixaban 5 MG TAB PO SCH ×2 (08:05→20:59)
[2019-09-19] MEDS: Aspirin Chewable 81 MG TAB PO SCH (08:05)
[2019-09-19] MEDS: Nystatin 500,000 UNITS/5 ML UDCUP SSW SCH ×4 (08:05→21:00)
[2019-09-19] MEDS: Potassium Chloride 20 MEQ TAB PO SCH (08:05)
[2019-09-19] MEDS: Citalopram 20 MG TAB PO SCH (08:05)
[2019-09-19] MEDS: Carvedilol 3.125 MG TAB PO SCH ×2 (08:05→20:59)
[2019-09-19] MEDS: Insulin Regular 300 UNITS/3 ML VIAL SC PRN ×2 (08:07→17:11)
[2019-09-19] MEDS: Nystatin Powder 15 GM BOT TOP SCH ×2 (08:11→21:00)
[2019-09-19] MEDS: Emollient 15 oz bottle 450 ML, Triamcinolone Acetonide 200 MG TOP SCH ×2 (08:12→21:00)
[2019-09-19] MEDS: Acetaminophen 325 MG TAB PO PRN (14:19)
[2019-09-19] MEDS: Lantus 1000 UNITS/10 ML VIAL SC SCH (20:59)
[2019-09-19] MEDS: HYDROcodone/Acetaminophen 7.5/325 mg Tablet PO PRN (21:03)
[2019-09-19] MEDS: Melatonin 3 MG TAB PO PRN (21:04)
[2019-09-20] MEDS: Levothyroxine Sodium 125 MCG TAB PO SCH (05:04)
[2019-09-20] MEDS: Insulin Regular 300 UNITS/3 ML VIAL SC PRN ×3 (08:16→17:09)
[2019-09-20] MEDS: Fluticasone Propionate Nasal Spray 16 gm Bottle NASAL SCH (08:18)
[2019-09-20] MEDS: Nystatin 500,000 UNITS/5 ML UDCUP SSW SCH ×4 (08:19→21:28)
[2019-09-20] MEDS: Docusate 100 MG CAP PO SCH ×2 (08:19→21:26)
[2019-09-20] MEDS: Metolazone 5 MG TAB PO SCH (08:20)
[2019-09-20] MEDS: Apixaban 5 MG TAB PO SCH ×2 (08:20→21:26)
[2019-09-20] MEDS: Citalopram 20 MG TAB PO SCH (08:20)
[2019-09-20] MEDS: Furosemide 20 MG TAB PO SCH ×2 (08:20→13:12)
[2019-09-20] MEDS: Potassium Chloride 20 MEQ TAB PO SCH (08:20)
[2019-09-20] MEDS: Aspirin Chewable 81 MG TAB PO SCH (08:21)
[2019-09-20] MEDS: Carvedilol 3.125 MG TAB PO SCH ×2 (08:21→21:26)
[2019-09-20] MEDS: Emollient 15 oz bottle 450 ML, Triamcinolone Acetonide 200 MG TOP SCH ×2 (08:22→21:29)
[2019-09-20] MEDS: Nystatin Powder 15 GM BOT TOP SCH ×2 (08:22→21:29)
[2019-09-20] MEDS: Lantus 1000 UNITS/10 ML VIAL SC SCH (21:27)
[2019-09-20] MEDS: HYDROcodone/Acetaminophen 7.5/325 mg Tablet PO PRN (21:30)
[2019-09-20] MEDS: Melatonin 3 MG TAB PO PRN (21:30)
[2019-09-21] MEDS: Levothyroxine Sodium 125 MCG TAB PO SCH (05:39)
[2019-09-21] MEDS: Insulin Regular 300 UNITS/3 ML VIAL SC PRN ×4 (08:10→21:07)
[2019-09-21] MEDS: Fluticasone Propionate Nasal Spray 16 gm Bottle NASAL SCH (08:12)
[2019-09-21] MEDS: Nystatin 500,000 UNITS/5 ML UDCUP SSW SCH ×4 (08:13→21:04)
[2019-09-21] MEDS: Citalopram 20 MG TAB PO SCH (08:14)
[2019-09-21] MEDS: Docusate 100 MG CAP PO SCH ×2 (08:14→21:03)
[2019-09-21] MEDS: Apixaban 5 MG TAB PO SCH ×2 (08:15→21:03)
[2019-09-21] MEDS: Carvedilol 3.125 MG TAB PO SCH ×2 (08:15→21:03)
[2019-09-21] MEDS: Furosemide 20 MG TAB PO SCH ×2 (08:15→14:29)
[2019-09-21] MEDS: Metolazone 5 MG TAB PO SCH (08:15)
[2019-09-21] MEDS: Potassium Chloride 20 MEQ TAB PO SCH (08:15)
[2019-09-21] MEDS: Aspirin Chewable 81 MG TAB PO SCH (08:15)
[2019-09-21] MEDS: Emollient 15 oz bottle 450 ML, Triamcinolone Acetonide 200 MG TOP SCH ×2 (08:16→21:04)
[2019-09-21] MEDS: Nystatin Powder 15 GM BOT TOP SCH ×2 (08:16→21:04)
[2019-09-21] MEDS: HYDROcodone/Acetaminophen 7.5/325 mg Tablet PO PRN ×2 (08:19→21:05)
[2019-09-21] MEDS: Milk Of Magnesia 30 ML UDCUP PO PRN (08:20)
[2019-09-21] MEDS: Lantus 1000 UNITS/10 ML VIAL SC SCH (21:03)
[2019-09-21] MEDS: Melatonin 3 MG TAB PO PRN (21:05)
[2019-09-22] MEDS: Acetaminophen 325 MG TAB PO PRN (02:46)
[2019-09-22] MEDS: Levothyroxine Sodium 125 MCG TAB PO SCH (06:07)
[2019-09-22] MEDS: Potassium Chloride 20 MEQ TAB PO SCH (08:14)
[2019-09-22] MEDS: Nystatin 500,000 UNITS/5 ML UDCUP SSW SCH ×4 (08:14→21:36)
[2019-09-22] MEDS: Docusate 100 MG CAP PO SCH ×2 (08:15→21:35)
[2019-09-22] MEDS: Aspirin Chewable 81 MG TAB PO SCH (08:15)
[2019-09-22] MEDS: Furosemide 20 MG TAB PO SCH ×2 (08:15→14:15)
[2019-09-22] MEDS: Carvedilol 3.125 MG TAB PO SCH ×2 (08:15→21:35)
[2019-09-22] MEDS: Metolazone 5 MG TAB PO SCH (08:15)
[2019-09-22] MEDS: Citalopram 20 MG TAB PO SCH (08:15)
[2019-09-22] MEDS: Apixaban 5 MG TAB PO SCH ×2 (08:15→21:35)
[2019-09-22] MEDS: Fluticasone Propionate Nasal Spray 16 gm Bottle NASAL SCH (08:16)
[2019-09-22] MEDS: Nystatin Powder 15 GM BOT TOP SCH ×2 (08:16→21:36)
[2019-09-22] MEDS: Emollient 15 oz bottle 450 ML, Triamcinolone Acetonide 200 MG TOP SCH ×2 (08:16→21:36)
[2019-09-22] MEDS: HYDROcodone/Acetaminophen 7.5/325 mg Tablet PO PRN ×2 (08:19→21:33)
[2019-09-22] MEDS: Insulin Regular 300 UNITS/3 ML VIAL SC PRN ×4 (08:22→21:39)
[2019-09-22] MEDS: Milk Of Magnesia 30 ML UDCUP PO PRN (08:26)
[2019-09-22] MEDS: Melatonin 3 MG TAB PO PRN (21:35)
[2019-09-22] MEDS: Lantus 1000 UNITS/10 ML VIAL SC SCH (21:37)
[2019-09-23] MEDS: Acetaminophen 325 MG TAB PO PRN (04:34)
[2019-09-23] MEDS: Levothyroxine Sodium 125 MCG TAB PO SCH (05:52)
[2019-09-23] MEDS: Fluticasone Propionate Nasal Spray 16 gm Bottle NASAL SCH (08:14)
[2019-09-23] MEDS: Insulin Regular 300 UNITS/3 ML VIAL SC PRN ×3 (08:14→17:04)
[2019-09-23] MEDS: Citalopram 20 MG TAB PO SCH (08:15)
[2019-09-23] MEDS: Nystatin 500,000 UNITS/5 ML UDCUP SSW SCH ×4 (08:15→20:36)
[2019-09-23] MEDS: Carvedilol 3.125 MG TAB PO SCH ×2 (08:15→20:35)
[2019-09-23] MEDS: Potassium Chloride 20 MEQ TAB PO SCH (08:15)
[2019-09-23] MEDS: Aspirin Chewable 81 MG TAB PO SCH (08:15)
[2019-09-23] MEDS: Furosemide 20 MG TAB PO SCH ×2 (08:16→13:58)
[2019-09-23] MEDS: Docusate 100 MG CAP PO SCH ×2 (08:16→20:35)
[2019-09-23] MEDS: Apixaban 5 MG TAB PO SCH ×2 (08:16→20:35)
[2019-09-23] MEDS: Emollient 15 oz bottle 450 ML, Triamcinolone Acetonide 200 MG TOP SCH ×2 (08:16→20:37)
[2019-09-23] MEDS: Metolazone 5 MG TAB PO SCH (08:16)
[2019-09-23] MEDS: Nystatin Powder 15 GM BOT TOP SCH ×3 (08:16→20:37)
[2019-09-23] MEDS: Lantus 1000 UNITS/10 ML VIAL SC SCH (20:36)
[2019-09-23] MEDS: HYDROcodone/Acetaminophen 7.5/325 mg Tablet PO PRN (20:38)
[2019-09-23] MEDS: Melatonin 3 MG TAB PO PRN (20:38)
[2019-09-24] MEDS: Levothyroxine Sodium 125 MCG TAB PO SCH (05:33)
[2019-09-24] MEDS: Fluticasone Propionate Nasal Spray 16 gm Bottle NASAL SCH (08:03)
[2019-09-24] MEDS: Insulin Regular 300 UNITS/3 ML VIAL SC PRN ×3 (08:03→17:05)
[2019-09-24] MEDS: Nystatin 500,000 UNITS/5 ML UDCUP SSW SCH ×4 (08:03→21:04)
[2019-09-24] MEDS: Furosemide 20 MG TAB PO SCH ×2 (08:04→13:57)
[2019-09-24] MEDS: Potassium Chloride 20 MEQ TAB PO SCH (08:04)
[2019-09-24] MEDS: Apixaban 5 MG TAB PO SCH ×2 (08:04→21:01)
[2019-09-24] MEDS: Citalopram 20 MG TAB PO SCH (08:05)
[2019-09-24] MEDS: Metolazone 5 MG TAB PO SCH (08:05)
[2019-09-24] MEDS: Aspirin Chewable 81 MG TAB PO SCH (08:05)
[2019-09-24] MEDS: Emollient 15 oz bottle 450 ML, Triamcinolone Acetonide 200 MG TOP SCH ×2 (08:06→21:04)
[2019-09-24] MEDS: Nystatin Powder 15 GM BOT TOP SCH ×2 (08:06→21:04)
[2019-09-24] MEDS: Carvedilol 3.125 MG TAB PO SCH ×2 (08:06→21:01)
[2019-09-24] MEDS: Docusate 100 MG CAP PO SCH ×2 (08:06→21:02)
[2019-09-24] MEDS: Milk Of Magnesia 30 ML UDCUP PO PRN (13:56)
[2019-09-24] MEDS: Lantus 1000 UNITS/10 ML VIAL SC SCH (21:02)
[2019-09-24] MEDS: Melatonin 3 MG TAB PO PRN (21:04)
[2019-09-24] MEDS: HYDROcodone/Acetaminophen 7.5/325 mg Tablet PO PRN (21:05)
[2019-09-25] MEDS: Levothyroxine Sodium 125 MCG TAB PO SCH (05:14)
[2019-09-25 05:46] LABS: #Basophils 0.1 thou/uL (0.0-0.2); #Eosinphils 0.2 thou/uL (0.0-0.7); #Lymphocytes 2.6 thou/uL (1.20-3.40); #Monocytes 0.7 thou/uL (0.11-0.59); #Neutrophils 5.2 thou/uL (1.40-6.50); %Basophils 1.4 % (0.0-1.0); %Eosinophils 1.8 % (0.0-10.0); %Lymphocytes 29.2 % (21.0-51.0); %Neutrophils 59.7 % (42.0-75.0); Hemoglobin 10.7 g/dL (12.0-16.0); Mean Corpuscular HGB CONC 30.4 g/dL (32.0-36.0); Mean Corpuscular Hemoglobin 28.1 pg (27.0-31.0); Mean Corpuscular Volume 92.7 fL (78.0-98.0); Mean Platelet Volume 8.3 fL (7.4-10.4); Platelet Count 225 thou/uL (130-400); Red Blood Cell (RBC) Count 3.81 mill/uL (4.20-5.40); White Blood Cell (WBC) Count 8.7 thou/uL (4.8-10.8)
[2019-09-25 07:40] LABS: BUN (Urea Nitrogen) 29 mg/dL (9.8-20.1); Calc. Creatinine Clearance 96 mL/min (70-130); Carbon Dioxide 32 mmol/L (23-31); Chloride 92 mmol/L (98-107); Potassium 3.7 mmol/L (3.5-5.1); Sodium 137 mmol/L (136-145)
[2019-09-25 07:41] LABS: Anion Gap 16 mmol/L (10-20); Calcium 9.4 mg/dL (7.8-10.44); Estimated GFR-MDRD 39; Glucose 219 mg/dL (80-115)
[2019-09-25] MEDS: Insulin Regular 300 UNITS/3 ML VIAL SC PRN ×3 (08:54→16:54)
[2019-09-25] MEDS: Fluticasone Propionate Nasal Spray 16 gm Bottle NASAL SCH (08:57)
[2019-09-25] MEDS: Nystatin 500,000 UNITS/5 ML UDCUP SSW SCH ×4 (08:58→21:13)
[2019-09-25] MEDS: Docusate 100 MG CAP PO SCH ×2 (08:58→21:12)
[2019-09-25] MEDS: Carvedilol 3.125 MG TAB PO SCH ×2 (08:58→21:12)
[2019-09-25] MEDS: Potassium Chloride 20 MEQ TAB PO SCH (08:58)
[2019-09-25] MEDS: Aspirin Chewable 81 MG TAB PO SCH (08:58)
[2019-09-25] MEDS: Citalopram 20 MG TAB PO SCH (08:58)
[2019-09-25] MEDS: Metolazone 5 MG TAB PO SCH (08:58)
[2019-09-25] MEDS: Apixaban 5 MG TAB PO SCH ×2 (08:59→21:12)
[2019-09-25] MEDS: Furosemide 20 MG TAB PO SCH ×2 (08:59→14:08)
[2019-09-25] MEDS: Nystatin Powder 15 GM BOT TOP SCH ×2 (08:59→21:13)
[2019-09-25] MEDS: Emollient 15 oz bottle 450 ML, Triamcinolone Acetonide 200 MG TOP SCH ×2 (09:00→21:13)
[2019-09-25] MEDS: Melatonin 3 MG TAB PO PRN (21:12)
[2019-09-25] MEDS: Lantus 1000 UNITS/10 ML VIAL SC SCH (21:13)
[2019-09-25] MEDS: HYDROcodone/Acetaminophen 7.5/325 mg Tablet PO PRN (21:14)
[2019-09-26] MEDS: Acetaminophen 325 MG TAB PO PRN (03:29)
[2019-09-26] MEDS: Levothyroxine Sodium 125 MCG TAB PO SCH (05:40)
[2019-09-26] MEDS: HYDROcodone/Acetaminophen 7.5/325 mg Tablet PO PRN ×2 (05:41→21:21)
[2019-09-26 05:43] LABS: Hemoglobin 10.4 g/dL (12.0-16.0); Platelet Count 200 thou/uL (130-400)
[2019-09-26] MEDS: Nystatin 500,000 UNITS/5 ML UDCUP SSW SCH ×4 (08:15→20:49)
[2019-09-26] MEDS: Metolazone 5 MG TAB PO SCH (08:16)
[2019-09-26] MEDS: Potassium Chloride 20 MEQ TAB PO SCH (08:16)
[2019-09-26] MEDS: Docusate 100 MG CAP PO SCH ×2 (08:16→20:49)
[2019-09-26] MEDS: Furosemide 20 MG TAB PO SCH ×2 (08:16→14:21)
[2019-09-26] MEDS: Aspirin Chewable 81 MG TAB PO SCH (08:16)
[2019-09-26] MEDS: Citalopram 20 MG TAB PO SCH (08:16)
[2019-09-26] MEDS: Apixaban 5 MG TAB PO SCH ×2 (08:16→20:48)
[2019-09-26] MEDS: Carvedilol 3.125 MG TAB PO SCH ×2 (08:16→20:49)
[2019-09-26] MEDS: Fluticasone Propionate Nasal Spray 16 gm Bottle NASAL SCH (08:18)
[2019-09-26] MEDS: Insulin Regular 300 UNITS/3 ML VIAL SC PRN ×4 (08:20→20:57)
[2019-09-26] MEDS: Emollient 15 oz bottle 450 ML, Triamcinolone Acetonide 200 MG TOP SCH ×2 (08:25→21:02)
[2019-09-26] MEDS: Nystatin Powder 15 GM BOT TOP SCH ×2 (08:25→21:02)
[2019-09-26] MEDS ORDERED: Gabapentin 300 MG CAP PO SCH (14:30)
[2019-09-26] MEDS: Gabapentin 300 MG CAP PO SCH (20:49)
[2019-09-26] MEDS: Lantus 1000 UNITS/10 ML VIAL SC SCH (20:51)
[2019-09-27] MEDS: Levothyroxine Sodium 125 MCG TAB PO SCH (05:15)
[2019-09-27] MEDS: Potassium Chloride 20 MEQ TAB PO SCH (08:19)
[2019-09-27] MEDS: Docusate 100 MG CAP PO SCH ×2 (08:19→20:38)
[2019-09-27] MEDS: Nystatin 500,000 UNITS/5 ML UDCUP SSW SCH ×4 (08:19→20:37)
[2019-09-27] MEDS: Acetaminophen 325 MG TAB PO PRN (08:19)
[2019-09-27] MEDS: Furosemide 20 MG TAB PO SCH ×2 (08:19→14:38)
[2019-09-27] MEDS: Gabapentin 300 MG CAP PO SCH ×2 (08:20→20:38)
[2019-09-27] MEDS: Fluticasone Propionate Nasal Spray 16 gm Bottle NASAL SCH (08:20)
[2019-09-27] MEDS: Apixaban 5 MG TAB PO SCH ×2 (08:20→20:38)
[2019-09-27] MEDS: Aspirin Chewable 81 MG TAB PO SCH (08:20)
[2019-09-27] MEDS: Metolazone 5 MG TAB PO SCH (08:20)
[2019-09-27] MEDS: Citalopram 20 MG TAB PO SCH (08:20)
[2019-09-27] MEDS: Carvedilol 3.125 MG TAB PO SCH ×2 (08:20→20:38)
[2019-09-27] MEDS: Insulin Regular 300 UNITS/3 ML VIAL SC PRN ×3 (08:21→20:44)
[2019-09-27] MEDS: Nystatin Powder 15 GM BOT TOP SCH ×2 (08:25→20:40)
[2019-09-27] MEDS: Emollient 15 oz bottle 450 ML, Triamcinolone Acetonide 200 MG TOP SCH ×2 (08:26→20:39)
[2019-09-27 11:48] VITALS: BMI 52.4
[2019-09-27] MEDS: Lantus 1000 UNITS/10 ML VIAL SC SCH (20:46)
[2019-09-28] MEDS: Levothyroxine Sodium 125 MCG TAB PO SCH (05:47)
[2019-09-28] MEDS: Docusate 100 MG CAP PO SCH ×2 (08:56→20:36)
[2019-09-28] MEDS: Gabapentin 300 MG CAP PO SCH ×2 (08:56→20:36)
[2019-09-28] MEDS: Aspirin Chewable 81 MG TAB PO SCH (08:56)
[2019-09-28] MEDS: Potassium Chloride 20 MEQ TAB PO SCH (08:56)
[2019-09-28] MEDS: Apixaban 5 MG TAB PO SCH ×2 (08:57→20:36)
[2019-09-28] MEDS: Metolazone 5 MG TAB PO SCH (08:57)
[2019-09-28] MEDS: Furosemide 20 MG TAB PO SCH ×2 (08:57→14:33)
[2019-09-28] MEDS: Citalopram 20 MG TAB PO SCH (08:57)
[2019-09-28] MEDS: Carvedilol 3.125 MG TAB PO SCH ×2 (08:57→20:36)
[2019-09-28] MEDS: Fluticasone Propionate Nasal Spray 16 gm Bottle NASAL SCH (09:01)
[2019-09-28] MEDS: Insulin Regular 300 UNITS/3 ML VIAL SC PRN ×3 (09:01→20:37)
[2019-09-28] MEDS: Nystatin 500,000 UNITS/5 ML UDCUP SSW SCH ×2 (09:03→12:22)
[2019-09-28] MEDS: Nystatin Powder 15 GM BOT TOP SCH ×2 (09:07→20:39)
[2019-09-28] MEDS: Emollient 15 oz bottle 450 ML, Triamcinolone Acetonide 200 MG TOP SCH ×2 (09:16→20:38)
[2019-09-28] MEDS: Lantus 1000 UNITS/10 ML VIAL SC SCH (20:37)
[2019-09-29] MEDS: HYDROcodone/Acetaminophen 7.5/325 mg Tablet PO PRN ×2 (02:37→21:09)
[2019-09-29] MEDS: Levothyroxine Sodium 125 MCG TAB PO SCH (05:20)
[2019-09-29] MEDS: Fluticasone Propionate Nasal Spray 16 gm Bottle NASAL SCH (08:31)
[2019-09-29] MEDS: Potassium Chloride 20 MEQ TAB PO SCH (08:32)
[2019-09-29] MEDS: Docusate 100 MG CAP PO SCH ×2 (08:33→21:08)
[2019-09-29] MEDS: Apixaban 5 MG TAB PO SCH ×2 (08:33→21:08)
[2019-09-29] MEDS: Furosemide 20 MG TAB PO SCH ×2 (08:34→14:47)
[2019-09-29] MEDS: Citalopram 20 MG TAB PO SCH (08:34)
[2019-09-29] MEDS: Metolazone 5 MG TAB PO SCH (08:34)
[2019-09-29] MEDS: Gabapentin 300 MG CAP PO SCH ×2 (08:34→21:08)
[2019-09-29] MEDS: Carvedilol 3.125 MG TAB PO SCH ×2 (08:34→21:08)
[2019-09-29] MEDS: Aspirin Chewable 81 MG TAB PO SCH (08:34)
[2019-09-29] MEDS: Emollient 15 oz bottle 450 ML, Triamcinolone Acetonide 200 MG TOP SCH ×2 (08:35→21:11)
[2019-09-29] MEDS: Nystatin Powder 15 GM BOT TOP SCH ×2 (08:35→21:09)
[2019-09-29] MEDS: Insulin Regular 300 UNITS/3 ML VIAL SC PRN ×4 (08:36→21:13)
[2019-09-29] MEDS: Lantus 1000 UNITS/10 ML VIAL SC SCH (21:10)
[2019-09-30] MEDS: Levothyroxine Sodium 125 MCG TAB PO SCH (05:41)
[2019-09-30] MEDS: Potassium Chloride 20 MEQ TAB PO SCH (08:30)
[2019-09-30] MEDS: Docusate 100 MG CAP PO SCH ×2 (08:31→20:51)
[2019-09-30] MEDS: Fluticasone Propionate Nasal Spray 16 gm Bottle NASAL SCH (08:31)
[2019-09-30] MEDS: Furosemide 20 MG TAB PO SCH ×2 (08:31→14:09)
[2019-09-30] MEDS: Apixaban 5 MG TAB PO SCH ×2 (08:31→20:51)
[2019-09-30] MEDS: Carvedilol 3.125 MG TAB PO SCH ×2 (08:31→20:51)
[2019-09-30] MEDS: Citalopram 20 MG TAB PO SCH (08:31)
[2019-09-30] MEDS: Aspirin Chewable 81 MG TAB PO SCH (08:31)
[2019-09-30] MEDS: Metolazone 5 MG TAB PO SCH (08:31)
[2019-09-30] MEDS: Gabapentin 300 MG CAP PO SCH ×2 (08:31→20:51)
[2019-09-30] MEDS: Insulin Regular 300 UNITS/3 ML VIAL SC PRN ×4 (08:34→20:55)
[2019-09-30] MEDS: Emollient 15 oz bottle 450 ML, Triamcinolone Acetonide 200 MG TOP SCH ×2 (08:37→20:53)
[2019-09-30] MEDS: Nystatin Powder 15 GM BOT TOP SCH ×2 (08:37→20:53)
[2019-09-30] MEDS: Lantus 1000 UNITS/10 ML VIAL SC SCH (20:52)
[2019-09-30] MEDS: HYDROcodone/Acetaminophen 7.5/325 mg Tablet PO PRN (21:02)
[2019-10-01] MEDS: Levothyroxine Sodium 125 MCG TAB PO SCH (05:28)
[2019-10-01] MEDS: Aspirin Chewable 81 MG TAB PO SCH (08:38)
[2019-10-01] MEDS: Apixaban 5 MG TAB PO SCH ×2 (08:38→20:36)
[2019-10-01] MEDS: Metolazone 5 MG TAB PO SCH (08:38)
[2019-10-01] MEDS: Potassium Chloride 20 MEQ TAB PO SCH (08:38)
[2019-10-01] MEDS: Furosemide 20 MG TAB PO SCH ×2 (08:39→14:25)
[2019-10-01] MEDS: Carvedilol 3.125 MG TAB PO SCH ×2 (08:39→20:36)
[2019-10-01] MEDS: Docusate 100 MG CAP PO SCH ×2 (08:39→20:37)
[2019-10-01] MEDS: Gabapentin 300 MG CAP PO SCH ×2 (08:39→20:37)
[2019-10-01] MEDS: Citalopram 20 MG TAB PO SCH (08:39)
[2019-10-01] MEDS: Nystatin Powder 15 GM BOT TOP SCH (08:40)
[2019-10-01] MEDS: Fluticasone Propionate Nasal Spray 16 gm Bottle NASAL SCH (08:40)
[2019-10-01] MEDS: Emollient 15 oz bottle 450 ML, Triamcinolone Acetonide 200 MG TOP SCH ×2 (08:41→20:37)
[2019-10-01] MEDS: Insulin Regular 300 UNITS/3 ML VIAL SC PRN ×3 (08:42→17:05)
[2019-10-01] MEDS: Lantus 1000 UNITS/10 ML VIAL SC SCH (20:37)
[2019-10-01] MEDS: HYDROcodone/Acetaminophen 7.5/325 mg Tablet PO PRN (20:38)
[2019-10-02] MEDS: Levothyroxine Sodium 125 MCG TAB PO SCH (05:19)
[2019-10-02] MEDS: Insulin Regular 300 UNITS/3 ML VIAL SC PRN ×4 (08:06→20:37)
[2019-10-02] MEDS: Citalopram 20 MG TAB PO SCH (08:07)
[2019-10-02] MEDS: Aspirin Chewable 81 MG TAB PO SCH (08:07)
[2019-10-02] MEDS: Carvedilol 3.125 MG TAB PO SCH ×2 (08:07→20:38)
[2019-10-02] MEDS: Apixaban 5 MG TAB PO SCH ×2 (08:07→20:38)
[2019-10-02] MEDS: Furosemide 20 MG TAB PO SCH ×2 (08:07→14:45)
[2019-10-02] MEDS: Gabapentin 300 MG CAP PO SCH ×2 (08:07→20:37)
[2019-10-02] MEDS: Potassium Chloride 20 MEQ TAB PO SCH (08:07)
[2019-10-02] MEDS: Docusate 100 MG CAP PO SCH ×2 (08:07→20:38)
[2019-10-02] MEDS: Metolazone 5 MG TAB PO SCH (08:07)
[2019-10-02] MEDS: Fluticasone Propionate Nasal Spray 16 gm Bottle NASAL SCH (08:08)
[2019-10-02] MEDS: Emollient 15 oz bottle 450 ML, Triamcinolone Acetonide 200 MG TOP SCH ×2 (08:11→20:38)
[2019-10-02] MEDS: Lantus 1000 UNITS/10 ML VIAL SC SCH (20:36)
[2019-10-02] MEDS: HYDROcodone/Acetaminophen 7.5/325 mg Tablet PO PRN (20:36)
[2019-10-03] MEDS: Levothyroxine Sodium 125 MCG TAB PO SCH (05:46)
[2019-10-03 07:22] LABS: Hemoglobin 10.3 g/dL (12.0-16.0); Platelet Count 206 thou/uL (130-400)
[2019-10-03 07:23] VITALS: BP 124/67; TEMP 97.6
[2019-10-03] MEDS: Docusate 100 MG CAP PO SCH (08:13)
[2019-10-03] MEDS: Fluticasone Propionate Nasal Spray 16 gm Bottle NASAL SCH (08:13)
[2019-10-03] MEDS: Metolazone 5 MG TAB PO SCH (08:14)
[2019-10-03] MEDS: Citalopram 20 MG TAB PO SCH (08:14)
[2019-10-03] MEDS: Apixaban 5 MG TAB PO SCH (08:14)
[2019-10-03] MEDS: Potassium Chloride 20 MEQ TAB PO SCH (08:14)
[2019-10-03] MEDS: Carvedilol 3.125 MG TAB PO SCH (08:14)
[2019-10-03] MEDS: Furosemide 20 MG TAB PO SCH ×2 (08:14→13:57)
[2019-10-03] MEDS: Aspirin Chewable 81 MG TAB PO SCH (08:14)
[2019-10-03] MEDS: Gabapentin 300 MG CAP PO SCH (08:14)
[2019-10-03] MEDS: Insulin Regular 300 UNITS/3 ML VIAL SC PRN (08:14)
[2019-10-03] MEDS: Emollient 15 oz bottle 450 ML, Triamcinolone Acetonide 200 MG TOP SCH (08:26)
--- NOTE | 2019-10-04 10:01 | DIS ---
DATE OF ADMISSION: 08/29/2019 DATE OF DISCHARGE: 10/03/2019 ADMITTING PHYSICIAN: Faraz Frias MD DISCHARGING PHYSICIAN: Faraz Frias MD DISCHARGE DISPOSITION: Back to her home with family. DISCHARGE DIAGNOSES: 1. Physical deconditioning, much improved. 2. Respiratory failure with hypoxia, . 3. Acute kidney injury. 4. Chronic diastolic heart failure. 5. Obstructive sleep apnea, on CPAP. 6. Obesity hypoventilation syndrome. 7. Gait instability, improving. 8. Neuropathic pain. 9. Diabetes, type 2. 10. Morbid obesity. DISCHARGE MEDICATIONS: 1. Bloomery 1 tablet q.4 hours p.r.n. pain. 2. DuoNeb q.i.d. p.r.n. 3. Eliquis 5 mg b.i.d. 4. Aspirin 81 mg daily. 5. Carvedilol 3.125 b.i.d. 6. Celexa 20 p.o. daily. 7. Cardizem CD 120 p.o. daily. 8. Colace 100 b.i.d. 9. Lasix 20 b.i.d. 10. Gabapentin 300 b.i.d. 11. Lantus 10 units subcutaneously at bedtime. 12. Levothyroxine 125 mcg p.o. daily. 13. Melatonin 3 mg at bedtime p.r.n. 14. Metolazone 5 mg daily. 15. Nitroglycerin 0.5 sublingual q.5 p.r.n. chest pain. 16. Protonix 40 mg daily. 17. Potassium chloride 40 mEq p.o. daily. BRIEF HOSPITAL COURSE: Ms. Gaspar is a 69-year-old female with a history of chronic diastolic heart failure; obstructive sleep apnea, on CPAP; morbid obesity; type 2 diabetes, chronic low back pain, hypothyroidism, and supraventricular tachycardia, and coronary artery disease. The patient presented to [facility] in [place] on August 19, due to worsening shortness of breath for the past 3 months, that progressively began to worsen 3 to 4 days prior to hospitalization. En route to the hospital, the patient had episodes of bradycardic spells, and she was given atropine and noted to also have acute hypoxic respiratory failure with congestive heart failure. The patient was admitted to the ICU. She was seen by bottle selector and warehousing technician, and the patient was noted to have severe anasarca. She was diuresed with IV Lasix, and anasarca continued and slowly improved. The patient was noted to have acute kidney injury on chronic kidney disease. She was also placed on continuous oxygen. She was treated with Omnicef for 10 days, and she slowly improved. The patient was subsequently transferred to [facility] due to severe deconditioning. The patient upon admission on the , could barely stand or walk 1 to 2 steps. During hospitalization here, the patient continued diuresis with p.o. Lasix 40 mg b.i.d. The patient was seen by Physical Therapy and slowly improved. The patient during hospitalization was continued on nasal cannula oxygen throughout her stay, and this significantly helped her progress. Upon admission here, initial weight was 387 pounds when she was admitted here in [place], and upon discharge on the day of discharge, she was 333 pounds. So, the patient had lost a total of 54 pounds. The patient progressively improved, and Lasix was able to be decreased to 20 mg b.i.d., and the patient continued to even improve with this throughout the hospitalization. She denies any shortness of breath or chest pain. The patient had episodes of numbness, burning, and tingling sensation throughout her lower extremities, and she was started on gabapentin, which improved these significantly. The patient had episodes of hypokalemia, and potassium was repleted, and medication dose was increased, and this helped significantly. By the day of discharge, the patient was able to ambulate with a rolling walker about 300 feet. The patient was somewhat anxious to go back to her home, and she was very happy with the significant progress she had made in facility. We reassured her and gave her information on how to maintain a diet. The patient was discharged home with [facility] with continued training, physical therapy, occupational therapy. We were able to get patient a hospital bed, a wheelchair, walker, home oxygen and portable oxygen prior to discharge back to her home. The patient was discharged back to her home in stable condition. DISCHARGE VITAL SIGNS: Temperature 97.6, pulse 71, respirations 17, blood pressure 124/57, O2 saturation 98% on 2 L nasal cannula. Job ID: [id number]
== END 2019-10-03 15:00 | disposition home or self-care (01) | DRG 291 ==
LOC: MADMS 16:35
PROVIDERS: ADMIT Family Medicine; ATTEND Family Medicine
DX: I11.0 Hypertensive heart disease with heart failure (principal); J96.01 Acute respiratory failure with hypoxia; J96.02 Acute respiratory failure with hypercapnia; N17.9 Acute kidney failure, unspecified; E66.2 Morbid (severe) obesity with alveolar hypoventilation; I50.30 Unspecified diastolic (congestive) heart failure; R53.81 Other malaise; E11.9 Type 2 diabetes mellitus without complications; R26.9 Unspecified abnormalities of gait and mobility; E03.9 Hypothyroidism, unspecified; G89.4 Chronic pain syndrome; R00.1 Bradycardia, unspecified; I25.10 Atherosclerotic heart disease of native coronary artery without angina pectoris; K21.9 Gastro-esophageal reflux disease without esophagitis; Z90.49 Acquired absence of other specified parts of digestive tract; Z98.51 Tubal ligation status; Z88.3 Allergy status to other anti-infective agents; Z88.2 Allergy status to sulfonamides; Z88.8 Allergy status to other drugs, medicaments and biological substances
CPT/HCPCS: 36415; 36416; 80048; 80053; 81001; 82565; 83036; 85014; 85018; 85025; 85049; J1815; J3301; J7620; Q0162